=== PATIENT | male | born 1970 | race African-American/Black ===

== ENCOUNTER 2019-10-17 20:32 | Emergency (ER) | payer OTHER ==
[~2019-10-17] VITALS: Ht 165.1 cm; Wt 51.3 kg
[~2019-10-17 20:32] MED LIST: TEGRETOL200 MG; ULTRACET PO
== END 2019-10-17 21:45 | disposition home or self-care (01) ==
LOC: ER 20:32
DX: M13.841 Other specified arthritis, right hand (principal)

== ENCOUNTER → 2019-12-20 | Emergency (ER) | payer OTHER ==
[~2019-12-20] VITALS: Ht 167.6 cm; Wt 51.7 kg
[~2019-12-20] MED LIST changes: +ATHLETIC FOOT C30 GM TOP; +CIPRO500 MG PO; +FLUCONAZOLE100 MG PO; +KEFLEX500 MG PO; +TERBINAFINE HC250 MG; +TIVICAY10 MG PO
== END | disposition left against medical advice (07) ==
LOC: ER 20:07
DX: L03.116 Cellulitis of left lower limb (principal); R60.0 Localized edema; B35.3 Tinea pedis; Z03.818 Encounter for observation for suspected exposure to other biological agents ruled out

== ENCOUNTER 2019-12-21 10:43 | Inpatient (IN) | payer OTHER ==
[~2019-12-21] VITALS: Ht 167.6 cm; Wt 51.7 kg
[~2019-12-21 10:43] MED LIST changes: -ATHLETIC FOOT C30 GM TOP; -CIPRO500 MG PO; -FLUCONAZOLE100 MG PO; -KEFLEX500 MG PO; -TIVICAY10 MG PO
[2019-12-21] MEDS ORDERED: TIVICAY10 MG PO (11:04)
[2019-12-25] MEDS ORDERED: CIPRO500 MG PO (10:39)
[2019-12-25] MEDS ORDERED: FLUCONAZOLE100 MG PO (10:40)
[2019-12-25] MEDS ORDERED: KEFLEX500 MG PO (10:40)
[2019-12-25] MEDS ORDERED: ATHLETIC FOOT C30 GM TOP (10:41)
== END 2019-12-25 14:45 | disposition home or self-care (01) | DRG 603 ==
LOC: ER 10:43 → SEC-K 17:00 → MEDI 17:00 → MEDJ 17:41 → MEDI 12-25 14:45
PROVIDERS: ADMIT Internal Medicine; ATTEND Internal Medicine
DX: L03.116 Cellulitis of left lower limb (principal); B20 Human immunodeficiency virus [HIV] disease; B35.3 Tinea pedis; M25.511 Pain in right shoulder; M25.572 Pain in left ankle and joints of left foot; Z20.828 Contact with and (suspected) exposure to other viral communicable diseases

== ENCOUNTER → 2020-01-01 | Emergency (ER) | payer OTHER ==
[~2020-01-01] VITALS: Ht 165.1 cm; Wt 51.7 kg
[~2020-01-01] MED LIST changes: +ATHLETIC FOOT C30 GM TOP; +CIPRO500 MG PO; +FLUCONAZOLE100 MG PO; +KEFLEX500 MG PO; +TIVICAY10 MG PO
== END | disposition left against medical advice (07) ==
LOC: ER 10:28
DX: L97.428 Non-pressure chronic ulcer of left heel and midfoot with other specified severity (principal)

== ENCOUNTER → 2020-01-01 | Emergency (ER) | payer OTHER ==
[~2020-01-01] VITALS: Ht 165.1 cm; Wt 51.7 kg
== END | disposition left against medical advice (07) ==
LOC: ER 20:14
DX: Z53.20 Procedure and treatment not carried out because of patient's decision for unspecified reasons (principal)

== ENCOUNTER 2023-05-18 22:48 | Emergency (ER) | payer OTHER ==
[~2023-05-18] VITALS: Ht 167.6 cm; Wt 52.2 kg
[2023-05-19] MEDS ORDERED: KETOROLAC TROMETHAMINE 30 MG VIAL IV STA (01:10)
[2023-05-19] MEDS ORDERED: DEXAMETHASONE SODIUM PHOSPHATE 4 MG/ML VIAL IV STA (01:12)
[2023-05-19] MEDS ORDERED: OxyCODONE HCL/APAP UD (PERCOCET) PO STA (01:13)
[2023-05-19] MEDS ORDERED: CLINDAMYCIN PHOSPHATE 150 MG/ML (300mg) IM STA (01:16)
== END 2023-05-19 01:46 | disposition home or self-care (01) ==
LOC: ER 22:48
DX: K03.81 Cracked tooth (principal); R51.9 Headache, unspecified